=== PATIENT | female | born 1995 | race Caucasian/White ===

== ENCOUNTER → 2016-09-14 | Outpatient (CLI) | payer BC | END | disposition home or self-care (01) | LOC: C.PAPS 15:09 | PROVIDERS: ATTEND Obstetrics & Gynecology | DX: Z01.419 Encounter for gynecological examination (general) (routine) without abnormal findings (principal) ==

== ENCOUNTER 2023-09-03 11:52 | Inpatient (IN) ==
[2023-09-03] MEDS ORDERED: LIDOCAINE 1% LOCAL 20 ML VIAL INFIL PRN (12:16)
--- NOTE | 2023-09-03 12:24 | History & Physical Report ---
Date of Service September 03, 2023 Assessment & Plan (1) Group B streptococcal infection during : Plan: Lisa is a 27-year-old G1, P0 currently at 40 weeks 5 days gestational age presents in early labor. 1. Fetus: Category 1 tracing. 2. Labor: In early labor. Will continue to monitor and augment as indicated 3. GBS positive. Penicillin 4. Vitals within normal (2) Supervision of normal first : (3) Normal labor: History of Present Illness Primary Care Provider: NO PCP Lisa is a 27-year-old G1, P0 currently at 40 weeks 5 days gestational age presents in early labor. Patient was also noted watery type discharge over the past 24 to 48 hours. Denies any large gushes of fluid. Reporting good movement denying any vaginal bleeding. complicated by GBS positive OB Labs: Blood Type O Positive 08/24/23 Antibody Screen NEGATIVE 08/24/23 Hemoglobin 13.0 g/dl (12.0-16.0) 08/24/23 Hematocrit 38.1 % (37.0-47.0) 08/24/23 Mean Corpuscular Volume 89.9 fL (80.0-100.0) 08/24/23 Platelet Count 212 K/uL (130-400) 08/24/23 Rubella IgG Antibody Immune (Immune) 01/16/23 Rapid Plasma Reagin Nonreactive (Nonreactive) 01/16/23 Hepatitis B Surface Antigen. NON-REACTIVE (NON-REACTIVE) 01/16/23 Hepatitis C Antibody (EIA) NON-REACTIVE (NON-REACTIVE) 01/16/23 HIV (1&2) Ag and Ab Confirmation NON-REACTIVE (NON-REACTIVE) 01/16/23 Glucose 1 Hour 50 gm Load 96 mg/dl (70-130) 05/12/23 OB Optional Labs: Chlamydia trachomatis RNA Not Detected (NotDetected) 01/16/23 Neisseria gonorrhoeae RNA Not Detected (NotDetected) 01/16/23 Labs Reviewed: declined afp--[facility] low risk panorama--[facility] HOrizon 14 neg--[facility] Allergies Allergy/AdvReac Type Severity Reaction Status Date / Time No Known Allergies Allergy Verified 09/01/23 11:18 Home Medications Medication Instructions Recorded Confirmed Type vits no.124-ferrous fum 1 tab PO DAILY 09/03/23 09/03/23 History 27 mg iron-folic acid 800 mcg tablet ( Vitamin) Patient History Medical History (Updated 09/03/23 @ 12:21 by Shamar Whitmore MD) Migraine Family History (Updated 08/24/23 @ 16:54 by Negrita Voss RN) Grandfather (Paternal) Diabetes Mother Migraine Breast cancer Thyroid cancer Grandmother (Maternal) Breast cancer Aunt Breast cancer Denies family history of Ovarian cancer Colorectal cancer Social History Smoking Status: Never smoker Second Hand Exposure: No; Do You Dip or Chew Tobacco: No; Hx Alcohol Use: No Hx Substance Use: No Preferred Language: Haitian Communication Ability: Effective Bonding Molder Required: No Beliefs That Will Affect Care: None marital status: Single marital status details: Mike Granados ( [phone] Current Living Situation: Family and Significant Other Current Living Situation Comment: lives with boyfriends, dog, cats(outside), chicken current occupational status: employed 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 Feels Safe at Home: Yes Assistive Devices: None Physical Exam Genitourinary: normal external appearance OB Exam Abdomen: + vertex Manual OB Exam: + cervical dilation 3 cm, + cervical effacement 90% and + station -2 OB Exam Monitor Tracing: + external FHT monitor used, + external uterine monitor used, + category I and + normal FHT variability; no early decelerations present, no late decelerations present and no variable decelerations Results & Data Vital Signs (Past 12 Hours) Vital Signs Pulse BP 09/03/23 12:16 73 106/59 L Coding Level of Care Code None Diagnoses Group B streptococcal infection during O98.819; B95.1 Encounter for supervision of normal first in third trimester Z34.03 Trimester: third trimester Normal labor O80; Z37.9 (2) Supervision of normal first Trimester: third trimester Qualified Code(s): Z34.03 - Encounter for supervision of normal first , third trimester
[2023-09-03 12:53] LABS: Hematocrit (blood only) 34.8 % (37.0-47.0); Hemoglobin 12.3 g/dl (12.0-16.0); Mean Corpuscular Hemoglobin 30.7 pg (25.0-34.0); Mean Corpuscular Hgb Conc 35.3 g/dL (32.0-36.0); Mean Corpuscular Volume 86.8 fL (80.0-100.0); Mean Platelet Volume 10.1 fL (9.4-12.4); Platelet Count 196 K/uL (130-400); RDW Coefficient of Variation 12.7 % (11.5-14.5); RDW Standard Deviation 40.2 fL (36.4-46.3); Red Blood Count 4.01 M/uL (4.20-5.40)
[2023-09-03] MEDS: LACTATED RINGER'S 1,000 ML IV PRN (12:55)
[2023-09-03] MEDS: PENICILLIN GK 6 MU in DEXTROSE 5% 250 ML IV STA (12:58)
[2023-09-03] MEDS: BUTORPHANOL TARTRATE 2 MG/ML VIAL IV PRN (14:14)
--- NOTE | 2023-09-03 15:43 | Anesthesiology Consultation ---
Date of Service September 03, 2023 Assessment & Plan Chart Review Chart Review: Acceptable Risk for Surgery and Patient NOT seen in Pre Admission Testing Consults Requested none ASA ASA2 Proposed Anesthesia Anesthesia Type: Labor Epidural and CSE History Height/Weight Height: 5 ft 7 in Weight: 92.323 kg Allergies Allergy/AdvReac Type Severity Reaction Status Date / Time No Known Allergies Allergy Verified 09/01/23 11:18 Medications Home Medications Medication Instructions Recorded Confirmed Last Taken vits no.124-ferrous fum 1 tab PO DAILY 09/03/23 09/03/23 09/01/23 27 mg iron-folic acid 800 mcg tablet ( Vitamin) Active Medications Generic Name Dose Route Start Last Admin Trade Name Freq PRN Reason Stop Dose Admin Butorphanol Tartrate 1 mg 09/03/23 13:53 09/03/23 14:14 Butorphanol Tartrate 2 Mg/Ml Vial IV 10/03/23 13:52 1 mg Q4 PRN Administration Pain Lactated Ringer's 1,000 mls @ 125 mls/hr 09/03/23 12:16 09/03/23 14:00 Lr IV 09/05/23 12:15 125 mls/hr .Q8H PRN Infusion L&D Protocol Protocol Past Medical History Medical History Migraine obese anemia gerd Exercise / Class Metabolic Activity II 4-5 Yardwork/Stairs/Walk up hill Past Family History Family History Grandfather (Paternal) Diabetes Mother Migraine Breast cancer Thyroid cancer Grandmother (Maternal) Breast cancer Aunt Breast cancer Denies family history of Ovarian cancer Colorectal cancer Past Anesthesia History No Hx of Anesthesia Complications and No Family Hx of Anesthesia Complications History of PONV No Hx of PONV and No Hx of Motion Sickness Social History Smoking Status: Never smoker Do You Dip or Chew Tobacco: No Hx Alcohol Use: No Hx Substance Use: No substance use type: does not use Physical Exam Vital Signs Last Vital Signs Temp 36.4 C L 09/03/23 12:03 Pulse 72 09/03/23 15:33 Resp 20 09/03/23 12:03 BP 116/55 L 09/03/23 14:11 Pulse Ox 98 09/03/23 15:33 Testing Laboratory Results 09/03/23 12:32 Electrocardiogram Date: 08/24/23 Findings: + DONNYR @ (@ 83)
[2023-09-03] MEDS: fentaNYL citrate PF 100 MCG/2 ML VIAL ONE (16:04)
[2023-09-03] MEDS: BUPIVACAINE 0.25% PF 30 ML VIAL ONE (16:04)
[2023-09-03] MEDS: fentANYL 2 MCG/ML BUPIVacaine 0.125%-NSS 100ML BAG ONE (16:06)
[2023-09-03] MEDS ORDERED: LIDOCAINE 2% MPF LOCAL 5 ML VIAL EPI PRN (16:17)
[2023-09-03] MEDS ORDERED: NALOXONE HCL 0.4 MG/1 ML VIAL/CARP IV PRN (16:17)
[2023-09-03] MEDS ORDERED: diphenhydrAMINE 50 MG/ML VIAL IV PRN (16:17)
[2023-09-03] MEDS ORDERED: SODIUM CHLORIDE 0.9% PF INJ 10 ML VIAL EPI PRN (16:17)
[2023-09-03] MEDS ORDERED: NALBUPHINE HCL 5 MG in SYRINGE 0 ML IV PRN (16:17)
[2023-09-03] MEDS ORDERED: NALOXONE HCL 1 MG in SODIUM CHLORIDE 0.9% 1,000 ML IV PRN (16:17)
[2023-09-03] MEDS ORDERED: fentaNYL citrate PF 100 MCG/2 ML VIAL EPI PRN (16:17)
[2023-09-03] MEDS ORDERED: ONDANSETRON INJ 2 MG/ML 2 ML VIAL IV PRN (16:17)
[2023-09-03] MEDS ORDERED: ePHEDrine sulfate 50 MG/ML AMP IV PRN (16:17)
[2023-09-03] MEDS ORDERED: PROMETHAZINE HCL 6.25 MG in SODIUM CHLORIDE 0.9% 50 ML IV PRN (16:17)
[2023-09-03] MEDS ORDERED: ROPIVACAINE 0.5% PF 5 MG/ML 20 ML VIAL EPI PRN (16:17)
[2023-09-03] MEDS ORDERED: BUPIVACAINE 0.25% PF 30 ML VIAL EPI PRN (16:17)
[2023-09-03] MEDS: LIDOCAINE 2%/EPINEPHRINE 1:200,000 20 ML PF ONE (16:20)
[2023-09-03] MEDS: BUPIVACAINE 0.25% PF 30 ML VIAL EPI STA (16:47)
[2023-09-03] MEDS: fentaNYL citrate PF 100 MCG/2 ML VIAL EPI STA (16:47)
[2023-09-03] MEDS: SODIUM CHLORIDE 0.9% PF INJ 10 ML VIAL EPI STA (16:47)
[2023-09-03] MEDS: LIDOCAINE 2%/EPINEPHRINE 1:200,000 20 ML PF EPI STA (16:47)
[2023-09-03] MEDS: PENICILLIN GK 3 MU in DEXTROSE 5% 100 ML IV PRN (17:04)
[2023-09-03] MEDS: SODIUM CHLORIDE 0.9% PF INJ 10 ML VIAL ONE (19:14)
[2023-09-03] MEDS: ePHEDrine sulfate 50 MG/ML AMP ONE (19:14)
[2023-09-03] MEDS: fentANYL 2 MCG/ML BUPIVacaine 0.125%-NSS 100ML BAG EPI PRN (22:34)
[2023-09-04] MEDS: OXYTOCIN 30 UNITS/NSS 30 UNITS/500 ML BAG IV PRN (00:42)
--- NOTE | 2023-09-04 01:03 | Delivery Summary ---
Vaginal Delivery Summary Date of Service September 04, 2023 Vaginal Delivery Summary and 1st Degree LAC Patient aggressive 10 cm dilated 100% effaced +2 station pushed and intact perineum with epidural anesthesia and delivered a viable with weight and Apgars pending. Had the delivered in LUIS position and transition to right transverse. No nuchal cord was noted. Body and shoulders quickly followed. was noted to be vigorous upon delivery and 1 minute delayed cord clamping was initiated. Cord was then double clamped and cut. Cord blood obtained. Attention was turned to delivery the placenta was delivered intact with three-vessel cord with gentle cord traction. On inspection of perineum vagina and cervix there is noted to be bilateral labial lacerations and a first- degree vaginal laceration. Lacerations repaired with 3-0 Vicryl with continuous running stitch. Needle sponge and instrument counts were correct at the completion of the case. Both mother and stable in the immediate postdelivery Period. Estimated blood loss 300 mL and no complications noted [facility] Vaginal Delivery Charge Delivery Type Details: and 1st Degree LAC
[2023-09-04] MEDS ORDERED: HYDROCORTISONE ACETATE 25 MG SUPP PR PRN (01:05)
[2023-09-04] MEDS ORDERED: bisacodyL 10 MG SUPP PR PRN (01:05)
[2023-09-04] MEDS ORDERED: OXYTOCIN 30 UNITS/NSS 30 UNITS/500 ML BAG IV PRN (01:05)
--- NOTE | 2023-09-04 01:07 | Anesthesia Procedure Note ---
Date of Service September 04, 2023 Anesthesia Post Epidural Note Vital Signs Vital Signs: Temp Pulse Resp BP Pulse Ox O2 Del Method 36.9 C 85 18 126/62 96 Room Air 09/03/23 23:31 09/04/23 00:51 09/04/23 00:15 09/04/23 00:51 09/04/23 00:50 09/03/23 19:01 Pain Intensity Lower Medial Abdomen: Pain Intensity: 0 Notes Mental Status: alert / awake / arousable Nausea / Vomiting: adequately controlled Pain: adequately controlled Airway Patency, RR, SpO2: stable & adequate BP & HR: stable & adequate Hydration State: stable & adequate Neuraxial Anesthesia: was administered and sensory block is resolving Anesthetic Complications: no major complications apparent and Pt Satisfied with anesthetic care Epidural: Removed without complications and With tip intact
[2023-09-04] MEDS: DIPHTHER/TETAN/PERTUS Vaccine (Tdap, Adol/Adult) 0.5mL IM ONE (01:19)
[2023-09-04] MEDS: BENZOCAINE 20% SPRY 85 APPLN/85 GM CAN EXT PRN (02:58)
[2023-09-04] MEDS: IBUPROFEN 600 MG TAB PO PRN (02:58)
[2023-09-04] MEDS: ACETAMINOPHEN 325 MG TAB PO PRN (07:45)
[2023-09-04] MEDS: FERROUS SULFATE 325 MG TAB PO SCH (07:45)
[2023-09-04] MEDS: PRENATAL VITAMIN 1 TAB PO SCH (07:45)
[2023-09-04] MEDS: DOCUSATE SODIUM 100 MG CAP PO SCH (07:45)
--- NOTE | 2023-09-05 06:50 | Obstetrical Progress Note ---
Date of Service <Manolo Gonsalez MD - Last Filed: 09/05/23 08:28> September 05, 2023 Assessment & Plan <Manolo Gonsalez MD - Last Filed: 09/05/23 08:28> (1) Normal labor: Plan 27 yo , status post , day2, w/ 1st degree laceration on 09/03/23 - Pt doing well clinically. Feels well today. Eating well, voiding well, ambulating well. Pain well controlled with PRN pain meds. - Routine care -- OOB, ambulation, diet progression as tolerated Vital Signs reviewed and WNL. (Tmax at 36.5) Hemoglobin Reviewed. 12.3 (09/03/23). Blood Type: O+, GBS+, Rubella Immune. Encourage ambulation, monitor and control pain with Motrin PRN, resume regular diet, monitor lochia. Breast feeding encouraged. After discharge will have 6 week follow-up with Dr. Whitmore. Pt counselled on discharge instructions. <Yenni Kaba MD, FACOG - Last Filed: 09/05/23 08:56> (1) Normal labor: Subjective <Manolo Gonsalez MD - Last Filed: 09/05/23 08:28> Ambulation: ambulating normally Voiding: no voiding problems Passing Gas:: Yes Diet Tolerance:: regular diet Lochia:: Small Feeding Type:: breast feeding Current Pain Level(1-10): 1 (pain in vaginal area) Constitutional: no fever, no chills or no body aches Eyes: no worsening vision Respiratory: no cough, no chest congestion or no dyspnea Cardiovascular: no chest pain or no palpitations Breast: + breast pain (tenderness) Gastrointestinal: no abdominal pain, no nausea, no vomiting or no diarrhea/loose stools Physical Exam <Manolo Gonsalez MD - Last Filed: 09/05/23 08:28> Constitutional WD/WN, vitals as above Respiratory normal respiratory effort, lungs clear to auscultation Cardiovascular RRR, no murmur, no edema Extremities: no calf tenderness Gastrointestinal (Abdomen) normal bowel sounds, soft, nontender, no hepatosplenomegaly fundus of uterus at umbilicus Psychiatric A+Ox3, euthymic affect Results & Data <Manolo Gonsalez MD - Last Filed: 09/05/23 08:28> Vital Signs (Past 12 Hours) Vital Signs Temp Pulse Resp BP Pulse Ox O2 Del Method 09/04/23 23:55 36.5 C 79 16 109/66 97 Room Air 09/04/23 19:43 36.5 C 76 18 110/67 98 Room Air Supervising Physician <Yenni Kaba MD, FACOG - Last Filed: 09/05/23 08:56> Co-Signing Physician Notes Resident Physician Supervision Note: I was present with [Name of resident] during the history and exam. I di scussed the case with the resident and agree with the findings and plan as documented in the note. Any exceptions or clarifications are listed here: [None] Documented By: Yenni Kaba MD, FACOG
[2023-09-05] MEDS ORDERED: bisacodyL 5 MG TABEC PO SCH (20:00)
== END 2023-09-05 10:50 | disposition home or self-care (01) | DRG 807 ==
LOC: OPB 11:52 → 4S1 11:53 → 4E2 09-04 04:40

== ENCOUNTER 2025-01-20 21:23 | Inpatient (IN) ==
[2025-01-20] MEDS ORDERED: LIDOCAINE 1% LOCAL 20 ML VIAL INFIL PRN (21:39)
[2025-01-20] MEDS: LACTATED RINGER'S 1,000 ML IV PRN (22:03)
[2025-01-20] MEDS: PENICILLIN GK 6 MU in DEXTROSE 5% 250 ML IV STA (22:13)
[2025-01-20 22:36] LABS: Hematocrit (blood only) 34.5 % (37.0-47.0); Hemoglobin 11.6 g/dl (12.0-16.0); Mean Corpuscular Hemoglobin 29.7 pg (25.0-34.0); Mean Corpuscular Volume 88.5 fL (80.0-100.0); Platelet Count 195 K/uL (130-400); RDW Standard Deviation 41.9 fL (36.4-46.3); Red Blood Count 3.90 M/uL (4.20-5.40); White Blood Count 12.65 K/ul (4.8-10.8)
[2025-01-20] MEDS ORDERED: ONDANSETRON INJ 2 MG/ML 2 ML VIAL IV PRN (22:48)
[2025-01-20] MEDS ORDERED: ROPIVACAINE 0.5% PF 5 MG/ML 20 ML VIAL EPI PRN (22:48)
[2025-01-20] MEDS ORDERED: diphenhydrAMINE 50 MG/ML VIAL IV PRN (22:48)
[2025-01-20] MEDS ORDERED: LIDOCAINE 2% MPF LOCAL 5 ML VIAL EPI PRN (22:48)
[2025-01-20] MEDS ORDERED: NALOXONE HCL 0.4 MG/1 ML VIAL/CARP IV PRN (22:48)
[2025-01-20] MEDS ORDERED: NALOXONE HCL 1 MG in SODIUM CHLORIDE 0.9% 1,000 ML IV PRN (22:48)
[2025-01-20] MEDS ORDERED: BUPIVACAINE 0.25% PF 30 ML VIAL EPI PRN (22:48)
[2025-01-20] MEDS ORDERED: NALBUPHINE HCL INJ 10 MG/ML AMP IV PRN (22:48)
[2025-01-20] MEDS ORDERED: SODIUM CHLORIDE 0.9% PF INJ 10 ML VIAL EPI PRN (22:48)
[2025-01-20] MEDS: LIDOCAINE 2%/EPINEPHRINE 1:200,000 20 ML PF EPI STA (23:08)
[2025-01-20] MEDS: fentANYL 2 MCG/ML BUPIVacaine 0.125%-NSS 100ML BAG EPI PRN (23:08)
[2025-01-20] MEDS: BUPIVACAINE 0.25% PF 30 ML VIAL EPI STA (23:08)
--- NOTE | 2025-01-20 23:08 | Anesthesiology Consultation ---
Date of Service January 20, 2025 Assessment & Plan (1) Encounter for pre-operative examination: Chart Review Chart Review: Patient NOT seen in Pre Admission Testing and Acceptable Risk for Labor Epidural Consults Requested none History Height/Weight Height: 5 ft 7 in Weight: 96.524 kg Allergies Allergy/AdvReac Type Severity Reaction Status Date / Time No Known Allergies Allergy Verified 01/20/25 15:17 Medications Home Medications Medication Instructions Recorded Confirmed Last Taken vits no.124-ferrous fum 1 tab PO DAILY 09/03/23 01/20/25 09/01/23 27 mg iron-folic acid 800 mcg tablet ( Vitamin) calcium carbonate [Calcium 600] PO 07/05/24 01/20/25 Unknown Active Medications Generic Name Dose Route Start Last Admin Trade Name Freq PRN Reason Stop Dose Admin Lactated Ringer's 1,000 mls @ 125 mls/hr 01/20/25 21:39 01/20/25 22:03 Lr IV 01/22/25 21:38 999 mls/hr .Q8H PRN Administration L&D Protocol Protocol Past Medical History Medical History (Updated 01/20/25 @ 23:07 by Rangel Maier MD) Encounter for pre-operative examination Migraine Exercise / Class Metabolic Activity II 4-5 Yardwork/Stairs/Walk up hill Past Family History Family History Grandfather (Paternal) Diabetes Mother Migraine Breast cancer Thyroid cancer Grandmother (Maternal) Breast cancer Aunt Breast cancer Denies family history of Ovarian cancer Colorectal cancer Past Surgical History Surgical History No history of previous surgery Past Anesthesia History No Hx of Anesthesia Complications and No Family Hx of Anesthesia Complications History of PONV No Hx of PONV and No Hx of Motion Sickness Social History Smoking Status: Never smoker Do You Dip or Chew Tobacco: No Hx Alcohol Use: No Hx Substance Use: No substance use type: does not use Physical Exam Vital Signs Last Vital Signs Temp 36.5 C 01/20/25 21:54 Pulse 68 01/20/25 23:04 Resp 20 01/20/25 21:54 BP 114/59 L 01/20/25 23:04 Pulse Ox 89 L 01/20/25 23:04 Testing Laboratory Results 01/20/25 22:15
[2025-01-21] MEDS ORDERED: PENICILLIN GK 3 MU in DEXTROSE 5% 100 ML IV PRN (00:39)
[2025-01-21] MEDS: OXYTOCIN 30 UNITS/NSS 30 UNITS/500 ML BAG IV PRN (01:07)
--- NOTE | 2025-01-21 01:13 | Delivery Summary ---
Vaginal Delivery Summary Date of Service January 21, 2025 Vaginal Delivery Summary Spontaneous vaginal delivery patient was admitted in active labor at 7 cm received epidural antibiotics initiated for group B strep positive the patient was uncomfortable after epidural she then noticed some pressure and discomfort: Nursing states the baby's had not been delivered at the moment I walked into the baby had been delivered and was crying live vigorous female infant cord was clamped and cut cord blood obtained placenta removed with traction IV Pitocin started uterine tone improved there was no tearing noted sponge and instrument counts correct QBL per nursing record [facility] Vaginal Delivery Charge Delivery Type Details:
[2025-01-21] MEDS: fentANYL 2 MCG/ML BUPIVacaine 0.125%-NSS 100ML BAG ONE (02:00)
[2025-01-21] MEDS: BUPIVACAINE 0.25% PF 30 ML VIAL ONE (02:00)
[2025-01-21] MEDS: LIDOCAINE 2%/EPINEPHRINE 1:200,000 20 ML PF ONE (02:01)
[2025-01-21] MEDS: SODIUM CHLORIDE 0.9% PF INJ 10 ML VIAL EPI STA (02:01)
[2025-01-21] MEDS: SODIUM CHLORIDE 0.9% PF INJ 10 ML VIAL ONE (02:01)
[2025-01-21] MEDS ORDERED: OXYTOCIN 30 UNITS/NSS 30 UNITS/500 ML BAG IV PRN (02:30)
[2025-01-21] MEDS ORDERED: LACTATED RINGER'S 1,000 ML IV SCH (02:30)
[2025-01-21] MEDS ORDERED: ACETAMINOPHEN 325 MG TAB PO PRN (02:30)
[2025-01-21] MEDS ORDERED: BENZOCAINE 20% SPRY 85 APPLN/85 GM CAN EXT PRN (02:30)
[2025-01-21] MEDS ORDERED: HYDROCORTISONE ACETATE 25 MG SUPP PR PRN (02:30)
[2025-01-21] MEDS: PRENATAL VITAMIN 1 TAB PO SCH (08:18)
[2025-01-21] MEDS: DOCUSATE SODIUM 100 MG CAP PO SCH (08:18)
--- NOTE | 2025-01-21 08:46 | Anesthesia Procedure Note ---
Date of Service January 21, 2025 Anesthesia Post Epidural Note Vital Signs Vital Signs: Temp Pulse Resp BP Pulse Ox O2 Del Method 36.6 C 76 18 116/69 96 Room Air 01/21/25 07:31 01/21/25 07:31 01/21/25 07:31 01/21/25 07:31 01/21/25 07:31 01/21/25 07:31 Pain Intensity Bilateral Lower Abdomen: Pain Intensity: 6 Notes Mental Status: alert / awake / arousable and participated in evaluation Nausea / Vomiting: adequately controlled Pain: adequately controlled Airway Patency, RR, SpO2: stable & adequate BP & HR: stable & adequate Hydration State: stable & adequate Neuraxial Anesthesia: was administered and sensory block is resolving Anesthetic Complications: no major complications apparent Epidural: Removed without complications and With tip intact
[2025-01-21] MEDS: IBUPROFEN 600 MG TAB PO PRN (12:23)
[2025-01-21 12:46] VITALS: TEMP 98.2
[2025-01-22 06:13] LABS: Hematocrit (blood only) 33.1 % (37.0-47.0); Hemoglobin 11.3 g/dl (12.0-16.0); Mean Corpuscular Hemoglobin 30.6 pg (25.0-34.0); Mean Corpuscular Volume 89.7 fL (80.0-100.0); Platelet Count 193 K/uL (130-400); RDW Standard Deviation 43.4 fL (36.4-46.3); Red Blood Count 3.69 M/uL (4.20-5.40); White Blood Count 12.32 K/ul (4.8-10.8)
--- NOTE | 2025-01-22 06:58 | Obstetrical Progress Note ---
Date of Service January 22, 2025 Assessment & Plan (1) examination following vaginal delivery: Plan: 29 y/o post- day 1 s/p , complicated by GBS(+) treated with antibiotics during delivery Fells well today. Vital signs stable Continue post- care Encourage ambulation and Pain controlled with ibuprofen Hgb stable Discharge home today, follow up with Dr. Kaba in 6 weeks. Admission and Anticipated Discharge Date Admission Date: January 20, 2025 Anticipated date of discharge: 01/22/25 Supervising Physician Co-Signing Physician Notes Resident Physician Supervision Note: I was present with Dr. Gómez during the history and exam. I discussed the case with the resident and agree with the findings and plan as documented in the note. Any exceptions or clarifications are listed here: doing well, eating, voiding, ambulating. going well. abd soft ff 2 down nt, ext nt calves. ppd#1 s/p , desires dc home, instructions reviewed, f/u 6 wk pp check. breast,rhpos, ri. Documented By: Nataliia Hernandez MD, FACOG Subjective 29 y/o post- day 1 s/p . was complicated by GBS (+) which was treated with antibiotics during delivery. Rh(+), rubella immune Ambulation: ambulating normally Voiding: no voiding problems Passing Gas:: Yes Diet Tolerance:: regular diet Lochia:: Small Feeding Type:: breast feeding Current Pain Level: 0/10 There is mild pitting edema in the lower extremities bilaterally to the knee. Patient denies pain the calves when ambulating. Resting comfortably this AM in NAD. Denies TEJEDA, CP, SOB, N/V/D, LE pain. Review of Systems Review of Systems: All systems reviewed & are unremarkable except as noted in HPI & below Physical Exam Physical Exam: General: patient resting comfortably, NAD, non-toxic in appearance, AA&O x 4, answers questions appropriately. Skin: warm, dry, intact HEENT: NC/AT, anicteric sclera, conjunctiva without injection, moist mucus membranes. Heart: +S1/S2, regular, no m/r/g Lungs: equal air entry bilaterally, no rales/rhonchi/wheezes Abd: +BS, soft, NT/ND, uterine fundus firm at umbilicus Ext: warm, no clubbing/cyanosis or edema, Tyrell's neg. Neuro: nonfocal, patient AA&O x 4, speech intact, no facial droop, moving all extremities on command. Constitutional: WD/WN, vitals as above Results & Data Vital Signs (Past 12 Hours) Vital Signs Temp Pulse Resp BP Pulse Ox O2 Del Method 01/22/25 01:00 36.8 C 75 16 121/79 94 Room Air 01/21/25 20:00 36.8 C 87 16 128/81 96 Room Air
[2025-01-22] MEDS: DIPHTHER/TETAN/PERTUS Vaccine (Tdap, Adol/Adult) 0.5mL IM ONE (07:26)
[2025-01-22 09:46] VITALS: BP 120/84; PULSE 72; RESP 20; O2SAT 96
== END 2025-01-22 11:08 | disposition home or self-care (01) | DRG 807 ==
LOC: OPB 21:23 → 4S1 21:25 → 4E2 01-21 03:43